=== PATIENT | male | born 1950 | race Caucasian/White ===

== ENCOUNTER 2021-08-09 04:11 | Emergency (ER) | payer MEDICARE, OTHER ==
[2021-08-09] MEDS ORDERED: Ondansetron 4 MG/2 ML SDV IVPUSH ONE (04:36)
[2021-08-09] MEDS ORDERED: Sodium Chloride 0.9% 1,000 ML IV ONE ×2 (04:36→05:25)
[2021-08-09] MEDS ORDERED: Morphine 4 MG/ML Syringe IVPUSH ONE ×2 (04:36→05:03)
[2021-08-09] MEDS ORDERED: Iopamidol 612 MG/ML 100 ML Bottle IVPUSH ONE (04:39)
[2021-08-09] MEDS: Sodium Chloride 0.9% 10 ML SDV FLUSH ONE ×2 (04:44→05:06)
[2021-08-09] MEDS ORDERED: Prochlorperazine 10 MG in Sodium Chloride 0.9% 50 ML IV ONE (05:03)
[2021-08-09] MEDS ORDERED: diphenhydrAMINE 50 MG/ML SDV IVPUSH ONE (05:03)
[2021-08-09] MEDS ORDERED: Morphine 2 MG/ML SYRINGE IVPUSH ONE (06:07)
[2021-08-09] MEDS ORDERED: Ketorolac 15 MG/ML SDV IVPUSH ONE (06:44)
== END 2021-08-09 07:10 | disposition home or self-care (01) ==
LOC: JD.ED 04:11
DX: N13.2 Hydronephrosis with renal and ureteral calculous obstruction (principal); I10 Essential (primary) hypertension; K21.9 Gastro-esophageal reflux disease without esophagitis; E78.00 Pure hypercholesterolemia, unspecified; Z88.5 Allergy status to narcotic agent; Z79.899 Other long term (current) drug therapy
CPT/HCPCS: 36415; 74177; 80053; 81001; 83605; 83690; 85025; 93005; 96365; 96375; 96376; 99284; J0780; J1200; J1885; J2270; J2405; J7030; Q9967

== ENCOUNTER 2021-08-11 16:13 | Emergency (ER) | payer MEDICARE, OTHER ==
[2021-08-11] MEDS ORDERED: Sodium Chloride 0.9% 10 ML Syringe FLUSH PRN (16:40)
[2021-08-11] MEDS ORDERED: HYDROmorphone 0.5 MG/0.5 ML Syringe IVPUSH ONE ×2 (16:41→18:17)
[2021-08-11] MEDS ORDERED: Sodium Chloride 0.9% 1,000 ML IV SCH (16:45)
== END 2021-08-11 19:27 | disposition home or self-care (01) ==
LOC: JD.ED 16:13
DX: N13.2 Hydronephrosis with renal and ureteral calculous obstruction (principal); E78.00 Pure hypercholesterolemia, unspecified; I10 Essential (primary) hypertension; K21.9 Gastro-esophageal reflux disease without esophagitis; Z88.5 Allergy status to narcotic agent; Z79.899 Other long term (current) drug therapy
CPT/HCPCS: 36415; 81001; 85025; 86140; 96374; 96376; 99284; J1170; J7030; 99283; J3490